=== PATIENT | female | born 1990 | race Caucasian/White ===

== ENCOUNTER 2023-12-30 16:08 | Emergency (ER) | payer MEDICAID | END 2023-12-30 18:22 | disposition home or self-care (01) | LOC: CSHERS 16:08 | DX: N83.202 Unspecified ovarian cyst, left side (principal) | CPT/HCPCS: 76856 ==

== ENCOUNTER 2024-12-26 10:47 | Day surgery (SDC) | payer OTHER ==
[2024-12-22 13:28] VITALS: BMI 29.2
[2024-12-22 13:56] LABS: Hematocrit 35.9 % (34.9-44.5); Hemoglobin 12.0 g/dL (12.0-15.5); Mean Corpuscular Hemoglobin 29.1 pg (27.0-33.0); Mean Corpuscular Volume 87.1 fL (81.6-98.3); Platelet Count 308 10x3/uL (150-450); Red Blood Cell (RBC) Count 4.12 10x6/uL (3.90-5.03); White Blood Cell (WBC) Count 6.24 10x3/uL (3.5-10.5)
[2024-12-22 13:59] LABS: BHCG - Serum Negative (NEGATIVE); Pregs Control Bar Appear? YES (CONTROL BAR)
[2024-12-22 14:00] LABS: Pregs Control Background? CLEAR/WHITE (CLR/WHITE)
[2024-12-26] MEDS ORDERED: Famotidine/PF 20 mg/2ml Vial ONE (11:13)
[2024-12-26] MEDS ORDERED: Gabapentin 300 MG CAP ONE (11:13)
[2024-12-26] MEDS ORDERED: metroNIDAZOLE 500 MG (100 mL) BAG ONE (11:13)
[2024-12-26] MEDS ORDERED: PROPOFOL 0 ML ONE (12:19)
[2024-12-26] MEDS ORDERED: Rocuronium Bromide 10 MG/ML (10ML VIAL) ONE (12:21)
[2024-12-26] MEDS ORDERED: Lidocaine 1% PF 5 ML VIAL ONE (12:22)
[2024-12-26] MEDS ORDERED: Bupivacaine HCl 0.5%/Epinephrine 1:200,000/PF 30 ml Vial ONE (12:29)
[2024-12-26] MEDS ORDERED: CEFAZOLIN 2 GM VIAL ONE (12:45)
[2024-12-26] MEDS ORDERED: PROPOFOL 20 ML ONE (12:52)
[2024-12-26] MEDS ORDERED: Ondansetron PF 4 MG/2 ML Vial ONE ×2 (13:46→16:11)
[2024-12-26] MEDS ORDERED: SUGAMMADEX SODIUM 200 MG/2 ML VIAL ONE (13:52)
[2024-12-26] MEDS ORDERED: PHENYLEPHRINE-NS 100 MCG/ML 10 ML SYRINGE ONE (14:02)
[2024-12-26] MEDS ORDERED: Estradiol 0.05mg/24 Hour Patch (Weekly) ONE (14:21)
[2024-12-26] MEDS ORDERED: Estradiol 0.05mg/24 Hour Patch (Weekly) TD SCH (14:30)
[2024-12-26] MEDS ORDERED: Estradiol 0.1mg/24 Hour Patch (Weekly) TD SCH (14:30)
[2024-12-26] MEDS ORDERED: HYDROmorphone 0.5 MG/0.5 ML SYRINGE ONE (15:36)
== END 2024-12-26 18:10 | disposition home or self-care (01) ==
LOC: CSHSDC 10:47
PROVIDERS: ATTEND Obstetrics & Gynecology
PROC: 0UT74ZZ Resection of Bilateral Fallopian Tubes, Percutaneous Endoscopic Approach (ICD-10-PCS; principal; 2024-12-26)
PROC: 0UT24ZZ Resection of Bilateral Ovaries, Percutaneous Endoscopic Approach (ICD-10-PCS; principal; 2024-12-26)
PROC: 0UT94ZZ Resection of Uterus, Percutaneous Endoscopic Approach (ICD-10-PCS; principal; 2024-12-26)
DX: N80.03 Adenomyosis of the uterus (principal); N80.319 Endometriosis of the anterior cul-de-sac, unspecified depth; N80.329 Endometriosis of the posterior cul-de-sac, unspecified depth; N80.3C9 Endometriosis of the uterosacral ligament(s), unspecified side, unspecified depth; N80.201 Endometriosis of right fallopian tube, unspecified depth; N80.101 Endometriosis of right ovary, unspecified depth; N73.6 Female pelvic peritoneal adhesions (postinfective); Z87.59 Personal history of other complications of pregnancy, childbirth and the puerperium; Z88.0 Allergy status to penicillin; Z88.5 Allergy status to narcotic agent; Z88.8 Allergy status to other drugs, medicaments and biological substances
CPT/HCPCS: 36415; 84703; 85027; 86850; 86900; 86901; 88307; C9250-JZ; J1100; J1171; J1308; J2250; J2405; J2704; J3010; S2900